=== PATIENT | male | born 1995 | race Caucasian/White ===

== ENCOUNTER 2020-01-13 18:17 | Observation (INO) ==
[2020-01-13] MEDS ORDERED: SODIUM CHLORIDE 0.9% 1000ML 1,000 ML IV ONE (18:54)
[2020-01-13] MEDS ORDERED: VANCOMYCIN CONSULT ACTIVE PRN (19:07)
[2020-01-13] MEDS ORDERED: ACETAMINOPHEN 500 MG TAB PO STA (19:07)
[2020-01-13] MEDS ORDERED: VANCOMYCIN HCL 1,500 MG in SODIUM CHLORIDE 0.9% 500 ML IV ONE (19:07)
--- NOTE | 2020-01-13 19:29 | Emergency Department Note ---
History of Present Illness General Chief complaint: Wound Stated complaint: SPIDER BITE Time Seen by Provider: 01/13/20 18:45 History of Present Illness Provider complaint: Cellulitis fever Onset (ago): day(s) 2 Location: ankle and left Radiation: non-radiation Severity: severe Maximum Pain Intensity: 9 Current Pain Intensity: 9 Quality: + burning, + aching and + constant Relieved By: + none Exacerbated By: + none Associated symptoms: + fever/chills (T-max 102.2) and + rash; no confusion, no chest pain, no headaches, no nausea/vomiting and no shortness of breath 24-year-old male presents emergency department for cellulitis over his left ankle and fever. Patient states he noticed his symptoms began on Friday. He does report a fever. He reports his fever T-max was 102.2. He denies any discharge from the area. Home Medications Home Medications Medication Instructions Recorded Confirmed Type doxycycline hyclate 100 mg PO BID 21 Days #42 tab 01/12/20 01/13/20 Rx mupirocin 1 applic TOPICAL BID #22 g 01/12/20 01/13/20 Rx betamethasone dipropionate 0.05 % 1 applic TOPICAL BID #45 g 01/13/20 01/13/20 Rx topical ointment Allergies Allergy/AdvReac Type Severity Reaction Status Date / Time No Known Allergies Allergy Verified 01/13/20 10:38 Past Med/Surg History Medical History (Updated 01/13/20 @ 19:26 by Raheel Harris) Cellulitis Embryonal rhabdomyosarcoma 2011 Insect bite Surgical History History of orchiectomy Hx of knee surgery Social History Smoking Status: Never smoker Second Hand Exposure: No; Hx Alcohol Use: Yes Hx Substance Use: No Preferred Language: Nepali marital status: Single current occupational status: employed 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 Feels Safe at Home: Yes Childhood Exposure to Second-Hand Smoke: No Dental Care, Regularly: Yes Physical Activity Frequency: Daily Seatbelt Use: always Sunscreen Use: Yes Review of Systems A total of 10 systems reviewed and were otherwise negative Physical Exam Vital Signs Vital Signs - 24 hr 01/13/20 18:21 01/13/20 20:07 Temperature 38.1 C H Temperature Source Oral Pulse Rate 96 H Pulse Rate [Radial] 85 Pulse Rhythm [Radial] Regular Pulse Strength [Radial] Normal Respiratory Rate 18 18 Blood Pressure 138/78 Blood Pressure [Right Arm] 141/80 H Blood Pressure Mean 98 Blood Pressure Mean [Right Arm] 100 Pulse Oximetry 97 100 Oxygen Delivery Method Room Air Room Air Sepsis Recent Fever Within 48 Hours Yes Sepsis New/Unexplained Change in Mental Status No Sepsis Action Taken by Nursing No Action Required Physical Exam GENERAL: He is oriented to person, place, and time. He appears well-developed and well-nourished. He does not appear distressed. HENT: Exam performed. - Head: Normocephalic and atraumatic. - Right Ear: External ear normal. No mastoid tenderness. - Left Ear: External ear normal. No mastoid tenderness. - Mouth/Throat: The oropharynx is clear and moist. No trismus in the jaw. No dental abscesses or uvula swelling. No oropharyngeal exudate or tonsillar abscesses. EYES: Conjunctivae and EOM are normal. Pupils are equal, round, and reactive to light. Right eye exhibits no discharge. Left eye exhibits no discharge. No scleral icterus. NECK: Normal range of motion. Neck supple. No JVD present. No spinous process tenderness present. No carotid bruit present. No rigidity. No tracheal deviation and normal range of motion present. No Brudzinski's sign and no Kernig's sign noted. CV: Normal rate, regular rhythm, normal heart sounds and intact distal pulses. There is no peripheral edema. Palpable radial pulses bue. PULM/CHEST: Effort normal and breath sounds normal. No respiratory distress. No stridor. He has no wheezes. He has no rales. - Chest Wall: He exhibits no tenderness. ABD: The abdomen is soft. Bowel sounds are normal. He has no distension. No mass is present. There is no tenderness. There is no rebound, no guarding, no Farrell's sign and no tenderness at McBurney's point. Rovsig negative. MUSC/SKEL: Normal range of motion. There is no peripheral edema, tenderness or deformity. LYMPH: No cervical adenopathy. NEURO: He is alert and oriented to person, place, and time. He has normal strength. No cranial nerve deficit or sensory deficit. Coordination and gait normal. GCS eye subscore is 4. GCS verbal subscore is 5. GCS motor subscore is 6. Cerebellar tests wnl. SKIN: Bullous lesion over the posterior ankle with surrounding erythema and warmth. There is no drainage. PSYCH: He has a normal mood and affect. Behavior is normal. Judgment and thought content normal. Course Course 1844: The patient was evaluated in room A10. A complete history and physical exam was performed. EMR reviewed. Patient was seen in the emergency department last night. Per the documentation it was thought that the patient might of bit by an insect. He had blood work done which was within normal limits including a negative anaplasmosis and Lyme screen. Patient was discharged with Bactroban and doxycycline. Patient did see dermatology this morning and they thought that the patient was suffering from erysipelas versus cellulitis. Wound culture was taking per dermatology note. Given the patient's worsening cellulitis and fever, will plan on admitting the patient to the hospitalist service. Labs have been sent. 2113: Vital signs stable. Labs are within normal limits with exception of a mildly elevated creatinine of 1.51. Discussed with [facility] hospitalist Dr. Hanson who agreed to evaluate the patient Administered Medications Vancomycin HCl 1,500 mg/ (Sodium Chloride) 530 mls @ 200 mls/hr IV NOW ONE Stop: 01/13/20 21:45 Last Admin: 01/13/20 20:04 Dose: 200 mls/hr Documented by: [id number] Discontinued Medications Acetaminophen (Acetaminophen 500 Mg Tab) 1,000 mg PO NOW STA Stop: 01/13/20 19:08 Last Admin: 01/13/20 20:02 Dose: 1,000 mg Documented by: [id number] Sodium Chloride (Nss 1000ml) 1,000 mls @ 999 mls/hr IV .Q1H1M ONE Stop: 01/13/20 19:54 Last Admin: 01/13/20 20:04 Dose: 999 mls/hr Documented by: [id number] Medical Decision Making Laboratory Data Result diagrams: 01/13/20 19:50 01/13/20 19:50 Lab Results 01/13/20 01/13/20 01/13/20 Range/Units 19:50 19:50 19:50 WBC 8.65 (4.8-10.8) K/uL RBC 4.84 (4.7-6.1) M/uL Hgb 14.8 (14.0-18.0) g/dL Hct 41.3 L (42-52) % MCV 85.3 (80-100) fL MCH 30.6 (25-34) pg MCHC 35.8 (32-36) g/dL RDW Std Deviation 38.1 (36.4-46.3) fL RDW Coeff of Olivia 12.2 (11.5-14.5) % Plt Count 136 (130-400) K/uL MPV 10.9 H (7.4-10.4) fL Immature Gran % (Auto) 0.1 % Neut % (Auto) 80.5 % Lymph % (Auto) 9.1 % Braxton % (Auto) 9.9 % Eos % (Auto) 0.3 % Baso % (Auto) 0.1 % Neut # (Auto) 6.95 H (1.4-6.5) K/uL Lymph # (Auto) 0.79 L (1.2-3.4) K/uL Braxton # (Auto) 0.86 H (0.11-0.59) K/uL Eos # (Auto) 0.03 (0-0.5) K/uL Baso # (Auto) 0.01 (0-0.2) K/uL Immature Gran # (Auto) 0.01 (0.00-0.02) K/uL Sodium 137 (136-145) mmol/L Potassium 3.7 (3.5-5.1) mmol/L Chloride 102 (98-107) mmol/L Carbon Dioxide 28 (21-32) mmol/L Anion Gap 7.0 (3-11) BUN 15 (7-18) mg/dl Creatinine 1.51 H (0.6-1.4) mg/dl Est Cr Clr Drug Dosing 76.5 ml/min Est GFR ( Amer) 72.8 Est GFR (Non-Af Amer) 62.8 BUN/Creatinine Ratio 9.9 L (10-20) Glucose 88 (70-99) mg/dl Lactate 1.4 (0.4-2.0) mmol/L Calcium 9.6 (8.5-10.1) mg/dl [facility] Narrative 1845: The patient was evaluated in room A10. A complete history and physical exam was performed. EMR reviewed. Patient was seen in the emergency department last night. Per the documentation it was thought that the patient might of bit by an insect. He had blood work done which was within normal limits including a negative anaplasmosis and Lyme screen. Patient was discharged with Bactroban and doxycycline. Patient did see dermatology this morning and they thought that the patient was suffering from erysipelas versus cellulitis. Wound culture was taking per dermatology note. Given the patient's worsening cellulitis and fever, will plan on admitting the patient to the hospitalist service. Labs have been sent. 2113: Vital signs stable. Labs are within normal limits with exception of a mildly elevated creatinine of 1.51. Discussed with [facility] hospitalist Dr. Hanson who agreed to evaluate the patient Impression & Plan Cellulitis Discharge Plan Visit Data Chief Complaint: Wound Stated Complaint: SPIDER BITE ED Provider: Raheel Harris Discharge Problem: Cellulitis Patient Disposition: Being Evaluated by Hospitalist Forms Stand Alone Forms: [facility] Prescriptions Prescriptions: No Action betamethasone dipropionate 0.05 % ointment 1 applic topical BID Qty: 45 RF: 1 mupirocin 2 % ointment 1 applic topical BID Qty: 22 RF: 0 doxycycline hyclate 100 mg tablet 100 mg PO BID 21 Days Qty: 42 RF: 0 Referrals Referrals: PCP,NO [Primary Care Provider] -
[2020-01-13 20:11] LABS: Basophils # (auto) 0.01 K/uL (0-0.2); Basophils % (auto) 0.1 %; Eosinophils # (auto) 0.03 K/uL (0-0.5); Eosinophils % (auto) 0.3 %; Hematocrit (blood only) 41.3 % (42-52); Hemoglobin 14.8 g/dL (14.0-18.0); Immature Granulocytes # (auto) 0.01 K/uL (0.00-0.02); Immature Granulocytes % (auto) 0.1 %; Lymphocytes # (auto) 0.79 K/uL (1.2-3.4); Lymphocytes % (auto) 9.1 %; Mean Corpuscular Hemoglobin 30.6 pg (25-34); Mean Corpuscular Hgb Conc 35.8 g/dL (32-36); Mean Corpuscular Volume 85.3 fL (80-100); Mean Platelet Volume 10.9 fL (7.4-10.4); Monocytes # (auto) 0.86 K/uL (0.11-0.59); Monocytes % (auto) 9.9 %; Neutrophils # (auto) 6.95 K/uL (1.4-6.5); Neutrophils % (auto) 80.5 %; Platelet Count 136 K/uL (130-400); RDW Coefficient of Variation 12.2 % (11.5-14.5); RDW Standard Deviation 38.1 fL (36.4-46.3); Red Blood Count 4.84 M/uL (4.7-6.1); White Blood Count 8.65 K/uL (4.8-10.8)
[2020-01-13 20:25] LABS: BUN Creatinine Ratio 9.9 (10-20); Calcium 9.6 mg/dl (8.5-10.1); Creatinine Clr Calc Pharmacy 76.5 ml/min; Est GFR (African American) 72.8; Est GFR (Non-African American) 62.8; Potassium 3.7 mmol/L (3.5-5.1)
--- NOTE | 2020-01-13 21:08 | History & Physical Report ---
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 Left lower extremity cellulitis versus erysipelas 2/2 insect bite -Patient febrile with bright red sharply demarcated spreading erythema of the left lower extremity as noted above Failed Bactrim/adjunct doxycycline treatment Physical exam shows no signs of tendon/muscle involvement US soft tissue LLE pending for abscess/depth evaluation D/c vanco given elevated Cr. Convert to dapto on admit Wound culture collected outpatient pending Case discussed with [facility] by emergency attending provider, [facility] agreed to see patient in the morning after admit. Consult placed. 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 Pt reports on Friday, 5 days ago, he was on a trail run and ran through a series of webs in [place]. He noticed when he got home that he had a small insect bite on the back of his lower left calf. He feels this was okay on Friday and Friday, but on Friday he had a sudden increase in pain, redness, and swelling. He was seen Friday evening at [facility] who prescribed him Bactrim and noted that he had a 102 fever. [place] like he had minimal improvement and was seen on Friday by his stunt performer for a scheduled appointment for dry skin who lanced a blister which reportedly drained clear fluid and instructed him to return to the emergency department if he was not improving within 24 hours. He reports that the redness swelling and pain continued to worsen and spreadWwhich caused him to present to the emergency department last night. Doxycycline was added for double coverage and he had a Lyme screen which was negative. He was discharged home to continue Bactrim/Doxy. His pain, redness, and swelling continued to worsen which caused him to return today for reevaluation. His case was discussed by the emergency provider with you [facility] who agreed to see him the following morning if he was admitted. Patient reports that he had been taking Motrin and Tylenol for pain with mild/minimal benefit. No other attempted treatment. Worsening factors include bearing weight, after bearing weight for a couple of minutes pain slightly improves. Denies pain with plantar flexion/dorsiflexion/ankle inversion and eversion/lower extremity internal rotation/external rotation. Medical history: History of embryonic myosarcoma cured in 2012 following surgery, chemo, and radiation. Denies other chronic medical history. Surgical history: As above. And left meniscal arthroscopic of the knee. Medications: Denies chronic medications. Family history: Noncontributory Allergies: Denies drug allergies Social: Denies tobacco use, is an avid runner. CODE STATUS: Full code Allergies Allergy/AdvReac Type Severity Reaction Status Date / Time No Known Allergies Allergy Verified 01/13/20 21:25 Home Medications Home Medications Medication Instructions Recorded Confirmed Type doxycycline hyclate 100 mg PO BID 21 Days #42 tab 01/12/20 01/13/20 Rx mupirocin 1 applic TOPICAL BID #22 g 01/12/20 01/13/20 Rx betamethasone dipropionate 0.05 % 1 applic TOPICAL BID #45 g 01/13/20 01/13/20 Rx topical ointment sulfamethoxazole-trimethoprim 1 tab PO BID 01/13/20 01/13/20 History Past Med/Surg History Medical History Cellulitis Embryonal rhabdomyosarcoma 2011 Insect bite Surgical History History of orchiectomy Hx of knee surgery Social History Smoking Status: Never smoker Second Hand Exposure: No; Do You Dip or Chew Tobacco: No; Hx Alcohol Use: No Hx Substance Use: No Preferred Language: Omani Communication Ability: Effective Hand Molder Required: No Beliefs That Will Affect Care: None marital status: Single Current Living Situation: Significant Other current occupational status: employed 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 Other Information That Helps Us Care for You: No Feels Safe at Home: Yes Safety Concerns: Feels Safe At This Time Childhood Exposure to Second-Hand Smoke: No Dental Care, Regularly: Yes Physical Activity Frequency: Daily Seatbelt Use: always Sunscreen Use: Yes Review of Systems Review of Systems: Constitutional: See HPI Eyes: Denies double vision, vision change, eye pain ENT: Denies ear pain, sore throat, sinus pain Cardiovascular: Denies Chest pain, chest pressure, palpitations, extremity swelling Respiratory: Denies shortness of breath, cough, sputum production, difficulty breathing Gastrointestinal: Denies abdominal pain, nausea, vomiting, constipation, diarrhea Genitourinary: Denies pain with urination, urinary urgency, urinary frequency Musculoskeletal: See HPI Integumentary: See HPI Neurological: Denies headache, numbness, tingling, focal weakness Physical Exam Physical Exam: General: A&Ox3. NAD. Cooperative. HEENT: Atraumatic, normocephalic. Pupils equal and responsive to light and accommodation. Visual acuity grossly intact. Pulm: CTAB A&P. -wheezes, -rales, -rhonchi. Symmetrical chest rise. No increase work of breathing. No respiratory distress. Cardiac: RRR, -mrg. Radial pulses intact and symmetrical. Abdominal: Nontender, nondistended, soft. BS present. Skin: Warm, moist Extremities: Left lower extremity with erythema with sharply demarcated borders and swelling spreading from the posterior distal calf and wrapping around the ankle medially and laterally and sparing the dorsal surface of the left foot. Very warm to the touch. Central area of darkening/slight ulceration. Tender to palpation at ulceration, minimal tenderness at the lateral ankle. Soft tissue swelling is appreciated. PT pulses intact bilaterally and symmetrical. Left ankle dorsiflexion/plantar flexion/inversion/eversion/lower extremity internal rotation/external rotation against resistance does not cause any pain or worsening of pain. 5/5 strength to all motions and symmetrical with right. Sensation to soft touch intact in all toes bilaterally and symmetrical. Results & Data Results & Data ([facility]) Vital Signs (Past 12 Hours) Vital Signs Temp Pulse Pulse Resp BP BP Pulse Ox 01/13/20 20:07 85 18 141/80 H 100 01/13/20 18:21 38.1 C H 96 H 18 138/78 97 Supervising Physician Co-Signing Physician Notes Attending addendum: I have physically seen this patient, have supervised the medical residents activities, and agree with the H&P unless as otherwise noted. Assessment and Plan: Cellulitis/spider bite left lower extremity- Most likely spider bite, with associated necrotic center area due to toxin. Patient has had a negative Lyme test, and peripheral smear to this point not suggestive of anaplasmosis. Follow anaplasmosis antibody testing. We will also check for ehrlichiosis and babesiosis. N.p.o. after midnight Place on daptomycin IV and doxycycline IV. Keep leg elevated NSS@100 mils per hour Patient's significant other showed a picture which reveals a linear area of erythema extending up the calf to the popliteal fossa, suggestive of previous lymphangitis. This would suggest that the patient's initial treatment has been somewhat successful. Consult pending for Dr. Bains, [facility]. Acute kidney injury- Creatinine has worsened from 1.4-1.5. Continue IV fluid rehydration. Stop Bactrim. Repeat laboratories in a.m. Remaining orders and notations as noted Resident Activity Tracking Resident Involvement: Resident Care Provided Care Provided: [facility] (1) Cellulitis Laterality: left Site of cellulitis: extremity Site of cellulitis of extremity: lower extremity Qualified Code(s): L03.116 - Cellulitis of left lower limb (2) Insect bite Encounter type: initial encounter Laterality: left Site of insect bite: lower leg Qualified Code(s): S80.862A - Insect bite (nonvenomous), left lower leg, initial encounter; W57.XXXA - Bitten or stung by nonvenomous insect and other nonvenomous arthropods, initial encounter
[2020-01-13] MEDS ORDERED: ACETAMINOPHEN 325 MG TAB PO PRN (22:25)
[2020-01-13] MEDS ORDERED: DAPTOMYCIN CONSULT ACTIVE PRN (22:25)
[2020-01-13] MEDS ORDERED: SODIUM CHLORIDE 0.9% 1000ML 1,000 ML IV SCH (22:25)
[2020-01-13] MEDS ORDERED: OXYCODONE HCL IR 5 MG TAB (IMMEDIATE RELEASE) PO PRN (23:13)
[2020-01-13] MEDS ORDERED: HYDROmorphone INJ 0.5 MG/0.5 ML SYR IV PRN (23:21)
[2020-01-14] MEDS: DOXYCYCLINE HYCLATE 100 MG in DEXTROSE 5% 100 ML IV SCH ×2 (03:19→16:19)
[2020-01-14] MEDS: DAPTOmycin 300 MG in SYRINGE 0 ML IV SCH (05:31)
[2020-01-14 06:34] LABS: Basophils # (auto) 0.01 K/uL (0-0.2); Basophils % (auto) 0.2 %; Eosinophils % (auto) 1.7 %; Hematocrit (blood only) 38.3 % (42-52); Hemoglobin 13.4 g/dL (14.0-18.0); Immature Granulocytes # (auto) 0.01 K/uL (0.00-0.02); Immature Granulocytes % (auto) 0.2 %; Lymphocytes # (auto) 0.78 K/uL (1.2-3.4); Lymphocytes % (auto) 13.5 %; Mean Corpuscular Volume 85.7 fL (80-100); Mean Platelet Volume 11.3 fL (7.4-10.4); Monocytes # (auto) 1.08 K/uL (0.11-0.59); Monocytes % (auto) 18.7 %; Neutrophils # (auto) 3.81 K/uL (1.4-6.5); Neutrophils % (auto) 65.7 %; Platelet Count 124 K/uL (130-400); RDW Coefficient of Variation 12.4 % (11.5-14.5); RDW Standard Deviation 39.2 fL (36.4-46.3); Red Blood Count 4.47 M/uL (4.7-6.1); White Blood Count 5.79 K/uL (4.8-10.8)
[2020-01-14 07:11] LABS: BUN Creatinine Ratio 9.4 (10-20); Calcium 8.1 mg/dl (8.5-10.1); Creatinine Clr Calc Pharmacy 93.2 ml/min; Est GFR (African American) 92.4; Est GFR (Non-African American) 79.7
--- NOTE | 2020-01-14 07:53 | Ultrasound Report ---
ULTRASOUND LEFT LOWER EXTREMITY NONVASCULAR CLINICAL HISTORY: Left lower extremity cellulitis. COMPARISON STUDY: Radiographs of the left ankle dated 01/12/2020. FINDINGS: Real-time, grayscale, and color flow sonography of the soft tissues of the left posterior a nkle and the dorsal aspect of the foot is performed at the indicated sites of interest. There is subc utaneous soft tissue edema and fluid identified at this site. No organized fluid collection is seen t o suggest abscess. IMPRESSION: Findings suggest cellulitis in the left foot and ankle. No organized fluid collection is seen to indicate abscess. Electronically signed by: Luis A Wood M.D. 01/14/2020 7:51 AM
--- NOTE | 2020-01-14 10:13 | Orthopedic Consultation ---
Date of Consultation January 14, 2020 Assessment & Plan (1) Cellulitis: Cellulitis left lower extremity. Patient is starting to respond to antibiotics. He has noticed a decrease in his swelling. The erythema itself is a bit slower to resolve. Blistered area in the posterior lateral aspect will likely be the focal point to reaccumulate fluid. I have discussed the case with Dr. Bains. 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 Continue n.p.o. status. Continue IV antibiotics. Blood cultures and a surface wound culture are pendi ng. Plan for further cultures in the operating room. History of Present Illness Reason for Consultation: Cellulitis left lower extremity Attending Physician: Evan Walker, History of Present Illness Patient is a 24-year-old white male who was admitted for cellulitis and questionable abscess of the left lower extremity. Patient was on a trail run approximately 5 days ago. Had apparently run through some brush that had multiple cobwebs noted and when he had gotten home he had noticed what appeared to be a insect bite on his left lower extremity. He had no discernible symptoms for the first couple of days however by Friday he began noticing increased redness and pain in the left lower extremity above the ankle along the Achilles tendon where the bite had originated. He went to a [facility] where he was s een and given a prescription for Bactrim. The following day he had a dermatology appointment which the poultry processor noted a blister in that area and lanced it with clear fluid being expressed. Continue the Bactrim but his symptoms continue to worsen. He returned to the emergency room where he was prescribed doxycycline along with the Bactrim and was told to return if it worsened. He continued to have worsening symptoms. He states that increased redness at the foot going up the leg as well as increased swelling and pain. He states he was able to move his ankle with minimal discomfort and was able to weight-bear. He states if he had been sitting down for period of time and then started to weight-bear on the foot, he had initial pain but it got better as he continue to use the extremity. He was noted to be running fevers off and on. He returned to the emergency room last night and was admitted by the hospitalist service. Started on daptomycin. This morning he states he is feeling better. He has less discomfort although he still has pain. He notes that he has much less swelling this morning. He thought he was having a fever this morning however vital signs showed he has been afebrile since late last night. Denies any increased cough or sputum production, shortness of breath, chest pain, irregular heartbeat. Denies nausea or vomiting. Allergies Allergy/AdvReac Type Severity Reaction Status Date / Time No Known Allergies Allergy Verified 01/13/20 21:25 Home Medications Home Medications Medication Instructions Recorded Confirmed Type doxycycline hyclate 100 mg PO BID 21 Days #42 tab 01/12/20 01/13/20 Rx mupirocin 1 applic TOPICAL BID #22 g 01/12/20 01/13/20 Rx betamethasone dipropionate 0.05 % 1 applic TOPICAL BID #45 g 01/13/20 01/13/20 Rx topical ointment sulfamethoxazole-trimethoprim 1 tab PO BID 01/13/20 01/13/20 History Patient History Medical History Cellulitis Embryonal rhabdomyosarcoma 2012 Insect bite Surgical History History of orchiectomy Hx of knee surgery Social History Smoking Status: Never smoker Second Hand Exposure: No; Do You Dip or Chew Tobacco: No; Hx Alcohol Use: No Hx Substance Use: No Preferred Language: Estonian Communication Ability: Effective Med Specialist Required: No Beliefs That Will Affect Care: None marital status: Single Current Living Situation: Significant Other current occupational status: employed 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 He is alert and oriented x3, no acute distress, pleasant and cooperative. Examination of the left lower extremity shows an a large area of erythema at the foot that is going up the extremity. There is an area that has been marked with a purple pen that showed where most of his erythema was. There is some of the erythema that it has been receding. He does have a slight amount of erythema just above the pen janel going up the back of the calf. He still has some swelling over the dorsum of the foot with erythema noted. An area over the posterior lateral calf and Achilles tendon has blistered up. It is churchill and black in color. I cannot express any fluid at this time from this area but it appears to have a scant amount of fluid under it. Tender on palpation. Again no drainage noted this morning. No foul odor. He is able to dorsiflex and plantarflex the ankle without difficulty. He states he feels discomfort in around the bite wound but not in the joint of the ankle with range of motion. Neurovascular is intact. Denies decreased sensation. Capillary refill is less than 2 seconds. Results & Data ([facility]) Vital Signs (Past 12 Hours) Vital Signs Temp Pulse Resp BP Pulse Ox 01/14/20 07:17 37.4 C 82 16 129/69 97 01/13/20 23:16 36.8 C 01/13/20 22:35 37.5 C 88 18 146/75 H 100 (1) Cellulitis Laterality: left Site of cellulitis: extremity Site of cellulitis of extremity: lower extremity Qualified Code(s): L03.116 - Cellulitis of left lower limb
--- NOTE | 2020-01-14 11:22 | Anesthesiology Consultation ---
Date of Service January 14, 2020 Assessment & Plan (1) Encounter for pre-operative examination: Chart Review Chart Review: Acceptable Risk for Surgery (Urgent) History Surgery Operation Date: 01/14/20 14:25 Proposed Procedures p Left Lower Extremity Abscess, Incision and Drainage - Amarjit Bains DO Height/Weight Height: 5 ft 10 in Weight: 77.7 kg Allergies Allergy/AdvReac Type Severity Reaction Status Date / Time No Known Allergies Allergy Verified 01/13/20 21:25 Medications Home Medications Medication Instructions Recorded Confirmed Last Taken doxycycline hyclate 100 mg PO BID 21 Days #42 tab 01/12/20 01/13/20 01/13/20 18:00 mupirocin 1 applic TOPICAL BID #22 g 01/12/20 01/13/20 Unknown betamethasone dipropionate 0.05 % 1 applic TOPICAL BID #45 g 01/13/20 01/13/20 Unknown topical ointment sulfamethoxazole-trimethoprim 1 tab PO BID 01/13/20 01/13/20 01/13/20 18:00 Active Medications Generic Name Dose Route Start Last Admin Trade Name Pablo PRN Reason Stop Dose Admin Daptomycin 300 mg/ Syringe 6 mls @ 3 mls/min 01/14/20 06:00 01/14/20 05:31 IV 01/21/20 05:59 3 mls/min Q24H WILLIE Administration Protocol Doxycycline Hyclate 100 mg/ 110 mls @ 50 mls/hr 01/14/20 03:00 01/14/20 05:31 Dextrose IV 01/16/20 02:59 Infused Q12H WILLIE Infusion Past Medical History Medical History Cellulitis Embryonal rhabdomyosarcoma 2012 Insect bite Past Surgical History Surgical History History of orchiectomy Hx of knee surgery Social History Smoking Status: Never smoker Do You Dip or Chew Tobacco: No Hx Alcohol Use: No Hx Substance Use: No Physical Exam Vital Signs Last Vital Signs Temp 37.4 C 01/14/20 07:17 Pulse 82 01/14/20 07:17 Resp 16 01/14/20 07:17 BP 129/69 01/14/20 07:17 Pulse Ox 97 01/14/20 07:17 Testing Laboratory Results 01/14/20 06:11 08/14/20 06:11
[2020-01-14] MEDS ORDERED: LIDOCAINE HCL 2% 2 ML VIAL/AMP(20MG/ML) INFIL ONE (12:07)
[2020-01-14] MEDS ORDERED: fentaNYL citrate 100 MCG/2 ML VIAL ONE ×2 (12:07→14:05)
[2020-01-14] MEDS ORDERED: PROPOFOL IV EMULSION 10 MG/ML 20 ML VIAL IV ONE (12:07)
[2020-01-14] MEDS ORDERED: DEXAMETHASONE SOD INJ 4 MG/ML VIAL ONE (12:07)
[2020-01-14] MEDS ORDERED: MIDAZOLAM HCL 1 MG/ML 2ML VIAL ONE (12:07)
[2020-01-14] MEDS ORDERED: ONDANSETRON INJ 2 MG/ML 2 ML VIAL ONE (12:07)
[2020-01-14] MEDS ORDERED: BUPIVACAINE 0.5 % 5 MG/1 ML MPF 30ML VIAL ONE (13:30)
[2020-01-14] MEDS ORDERED: BACITRACIN INJ 50,000 UNIT VIAL ONE (13:30)
--- NOTE | 2020-01-14 13:43 | History & Physical Bridge Note ---
Date of Service January 14, 2020 History & Physical Bridge Note I have examined the patient, reviewed the History & Physical and in the interval since the performance of the History & Physical I have noted the following changes of clinical significance: Will require left ankle incision and drainage deep abscess, irrigation and debridement skin/fascia and Achilles tendon.
[2020-01-14] MEDS ORDERED: fentaNYL citrate 100 MCG/2 ML VIAL IV PRN (13:44)
[2020-01-14] MEDS ORDERED: ATROPINE SULFATE 0.1 MG/ML 10ML SYR IV PRN (13:44)
[2020-01-14] MEDS ORDERED: KETOROLAC 30 MG/ML VIAL IV PRN (13:44)
[2020-01-14] MEDS ORDERED: ONDANSETRON INJ 2 MG/ML 2 ML VIAL IV PRN (13:44)
[2020-01-14] MEDS ORDERED: KETOROLAC 30 MG/ML VIAL ONE (14:17)
[2020-01-14] MEDS ORDERED: BUPIVACAINE 0.5 % 5 MG/1 ML MPF 30ML VIAL INFIL ONE (14:31)
--- NOTE | 2020-01-14 14:42 | Post Operative Brief Note ---
Immediate Post Op Note v1 Date of Surgery January 14, 2020 Pre & Post Diagnosis Operation Date: 01/14/20 14:25 Pre-Op Diagnosis: Left posterior ankle abscess, left lower extremity cellulitis, multiple skin bullae posterior ankle Post-Op Diagnosis: Left posterior ankle abscess, left lower extremity cellulitis, multiple skin bullae posterior ankle I identified the patient and participated in the time-out.: Yes Procedure Operation Date: 01/14/20 14:25 Actual Procedures p Left posterior ankle extremity Abscess Incision and Drainage, irrigation and debridement posterior ankle including skin/fascia/peritenon and Achilles tendon. (Left) - Amarjit Bians DO Surgeon Amarjit Bains DO Line Service Supervisor Henry Bryan PA-C Estimated Blood Loss 2 Findings Consistent with Post-Op Diagnosis Specimens Aerobic anaerobic Gram stain deep abscess posterior left ankle region Drains Other (1/2 inch iodoform gauze drain) Anesthesia Type General Regional Complications none Disposition Accompanied Patient To Recovery: No Disposition: Recovery Room Overlapping Procedure I was present for: the critical portions of procedure. I was immediately available: during the entire case.
--- NOTE | 2020-01-14 15:00 | Operative Report (OR) ---
DATE OF OPERATION: 01/14/2020 PREOPERATIVE DIAGNOSES: 1. Left posterior ankle abscess. 2. Cellulitis, left lower leg. 3. Multiple bullae, left posterior ankle. POSTOPERATIVE DIAGNOSES: 1. Left posterior ankle abscess. 2. Cellulitis, left lower leg. 3. Multiple bullae, left posterior ankle. PROCEDURES PERFORMED: 1. Left posterior ankle region incision and drainage of abscess, deep. 2. Irrigation and debridement of skin/fascia, peritenon and Achilles. SURGEON: Amarjit Bains DO. CARGO SURVEYOR: Henry Bryan PA-C. ANESTHESIA: General, local. SPECIMENS: Aerobic, anaerobic, Gram stain of deep abscess, left posterior ankle. DRAINS: 1/2 inch iodoform gauze. COMPLICATIONS: None. BLOOD LOSS: 2 mL. PERTINENT HISTORY: This is a 24-year-old gentleman who noticed a painful swelling and bullae with redness streaking up his leg since sometime after Friday of this week. He was on a run, he noted that he did run through a significant amount of spider webs on the trailer he was running on. He started to have pain in his lower ankle and Achilles region, noted bumps and bullae, which then progressively worsened. Yesterday, he had severe erythema and cellulitis with large and inflamed bullae in the posterior aspect of his left ankle region. He was seen in the Emergency Department and admitted to the hospitalist service, placed on IV antibiotics with Orthopedics to consult. The patient was seen in consultation, noted to have significant erythema and bullae with an area of severe induration, fluctuance, likely abscess. The patient was then scheduled for surgery as indicated. All potential risks, benefits, complications, alternatives, rehab potential for incomplete relief of symptoms, need for further surgery, DVT, PE, , persistent pain, swelling, scarring, weakness, loss of function and need for further debridement were discussed with the patient. I explained that there may be tissue necrosis also involved, that this indeed was a toxic spider envenomation. The patient was then scheduled for surgery as indicated. DESCRIPTION OF PROCEDURE: The patient was taken to the operative suite, placed supine on the operating table. After review of consent and identification of proper operative site, the patient was anesthetized, LMA was placed. Tourniquet was placed high on the left thigh over cast padding. Left lower extremity was sterilely prepped and draped in usual fashion, elevated and tourniquet inflated to 350 mmHg. There was no exsanguination performed due to the cellulitis and infection. Next, after surgical timeout was performed, a 15 blade scalpel was used to make an incision at the site of maximum induration and fluctuance posterolateral to the Achilles tendon. The incision was deepened through subcutaneous tissue. Meticulous hemostasis was achieved with electrocautery. Full thickness skin flaps were developed. The incision was deepened through the skin and subcutaneous tissue to the level of the Achilles and peritenon. There is a deep abscess adjacent to the peritenon, which was then sampled for aerobic, anaerobic, Gram stain, and sent off as specimen. There was no specific focal tissue necrosis; however, there was some tunneling noted. This was followed with a small curette and curettage was then performed of the fascia and the peritenon adjacent to the Achilles. Next, the rongeur was then used to debride any necrotic or questionable tissue around the incision site. One of the small bullae superficially was also cultured. Next, pulsatile lavage with 3 liters of sterile saline with bacitracin was then used to lavage the abscess pocket until clear. Next, new top gloves and top sheet were changed and 1/2-inch iodoform gauze packing was placed into the abscess site and then loose soft tissue closure approximation was then performed with 3-0 nylon sutures. Next, a sterile compressive dressing was applied overwrapped with an Daniel wrap. The tourniquet was released. The patient was awakened and taken to recovery in stable condition. I attest to the content of the Intraoperative Record and any orders documented therein. Any exception s are noted below.
--- NOTE | 2020-01-14 15:59 | Anesthesiology Progress Note ---
Date of Service January 14, 2020 Anesthesia Post Procedure Vital Signs Vital Signs: Temp Pulse Pulse Pulse Resp BP BP 01/14/20 15:30 36.9 C 70 16 127/79 01/14/20 15:20 68 14 141/84 H 01/14/20 15:10 76 16 128/58 L 01/14/20 15:00 71 12 147/81 H 01/14/20 14:50 59 L 12 132/59 L 01/14/20 14:44 36.9 C 57 L 14 132/74 01/14/20 13:41 36.6 C 80 16 147/83 H 01/14/20 07:17 37.4 C 82 16 129/69 01/13/20 23:16 36.8 C 01/13/20 22:35 37.5 C 88 18 146/75 H 01/13/20 22:01 79 16 137/72 01/13/20 21:46 37.8 C H 79 16 137/72 01/13/20 20:07 85 18 141/80 H 01/13/20 18:21 38.1 C H 96 H 18 138/78 Pulse Ox 01/14/20 15:30 100 01/14/20 15:20 100 01/14/20 15:10 100 01/14/20 15:00 100 01/14/20 14:50 100 01/14/20 14:44 100 01/14/20 13:41 98 01/14/20 07:17 97 01/13/20 23:16 01/13/20 22:35 100 01/13/20 22:01 99 01/13/20 21:46 99 01/13/20 20:07 100 01/13/20 18:21 97 Pain Intensity Left Foot: Pain Intensity: 1 Transfer of Care Handoff Completed per policy Notes Mental Status: alert / awake / arousable and participated in evaluation Patient Amnestic to Procedure: Yes Nausea / Vomiting: adequately controlled Pain: adequately controlled Airway Patency, RR, SpO2: stable & adequate BP & HR: stable & adequate Hydration State: stable & adequate Anesthetic Complications: no major complications apparent and Pt Satisfied with anesthetic care
--- NOTE | 2020-01-14 17:54 | Hospitalist Progress Note ---
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 Left lower extremity cellulitis versus erysipelas 2/2 insect bite -Patient febrile with bright red sharply demarcated spreading erythema of the left lower extremity as noted above Failed Bactrim/adjunct doxycycline treatment Physical exam shows no signs of tendon/muscle involvement US soft tissue LLE negative for abscess/depth evaluation continue Daptomycin 300 mg IV Q24H for inpatient treatment of cellulitis - Continue Doxycycline hyclate 100mg IV Q12H to cover for lyme Wound culture collected outpatient pending Ortho saw patient today - will perform I&D in the OR later today due to proximity of cellulitis to Achilles tendon - NPO for surgery OH Patient with creatinine 1.5 in the ED --> 1.24 this morning s/p 1L fluids - likely pre-renal secondary to dehydration No known history of kidney disease, patient recently on Bactrim by [facility] for approximately 5 days Hold Bactrim Vancomycin converted to daptomycin BMP daily No other chronical medical conditions DVT prophylaxis: Low risk, SCD on nonaffected extremity Diet: Regular Disposition: Medical surgical CODE STATUS: Full code (2) Insect bite: Admission and Anticipated Discharge Date Admission Date: January 13, 2020 Supervising Physician Co-Signing Physician Notes I also saw the patient current with the resident physician. I confirmed horton portions of the history and physical examination. I agree with the impression and plan as noted above. The patient notes about a 30% improvement in the symptoms compared to yesterday -he notes that the erythema and swelling are slightly down, and the pain at rest is less than compared to yesterday. However he still has pain with flexion of the left foot and considerable pain if he tries to bear weight. The history is detailed previously, although it is noted that a superficial wound culture was collected at a dermatology appointment and is pending. The patient was initially started on Bactrim, and subsequently doxycycline, but as noted above, had progression of erythema, edema, and pain despite. Orthopedics has seen the patient as well, and given the proximity of the wound to the Achilles tendon, the plan is to take the patient to the OR for incision , culture debridement, and irrigation irrigation. Subjective No acute events overnight. Afebrile since T38.1 x1 in the ED. VSS/WNL. Voiding spontaneously. US deep tissue of left lower extremity did not show signs of abscess. Patient NPO for possible procedure later today. This morning the patient confirmed history recorded in H&P - says he thinks he got bitten by a spider on his left calf while [place] 5 [place] ago. Denies current fever/chills, chest pain, shortness of breath, N/V, diarrhea, rash other than the red, painful redness on the back of his left lower calf. Review of Systems Constitutional: as per Subjective / HPI Eyes: no worsening vision Ear, Nose, Mouth, Throat: no hearing loss Respiratory: as per Subjective / HPI; no cough Cardiovascular: as per Subjective / HPI; no palpitations Gastrointestinal: as per Subjective / HPI Genitourinary: no dysuria, no urinary frequency, no urinary hesitancy and no flank pain Physical Exam Constitutional: WD/WN, vitals as above no acute distress ENMT: external ear and nose normal, oropharynx normal Neck: normal visual inspection Respiratory: normal respiratory effort, lungs clear to auscultation Cardiovascular: RRR, no murmur, no edema Gastrointestinal (Abdomen): normal bowel sounds, soft, nontender, no hepatosplenomegaly Musculoskeletal: no cyanosis or clubbing, extremities motor strength 5/5 Skin: warm, erythematous, well-demarcated lesion with central darkening on left posterior distal calf, moderately tender to palpation, with associated swelling of left ventral foot. Mildly indurated, no fluctuance. No tracks up leg. Neurologic: patellar DTR's 2+ bilat, sensation intact Psychiatric: A+Ox3, euthymic affect Results & Data Results & Data ([facility]) Vital Signs (Past 12 Hours) Vital Signs Temp Pulse Pulse Resp BP Pulse Ox 01/14/20 16:45 36.6 C 58 L 16 127/77 100 01/14/20 16:15 36.6 C 70 16 121/76 99 01/14/20 15:45 36.6 C 63 14 131/77 98 01/14/20 15:30 36.9 C 70 16 127/79 100 01/14/20 15:20 68 14 141/84 H 100 01/14/20 15:10 76 16 128/58 L 100 01/14/20 15:00 71 12 147/81 H 100 01/14/20 14:50 59 L 12 132/59 L 100 01/14/20 14:44 36.9 C 57 L 14 132/74 100 01/14/20 13:41 36.6 C 80 16 147/83 H 98 01/14/20 07:17 37.4 C 82 16 129/69 97 CBC Results Results Complete Blood Count Results: RBC 4.47 M/uL (4.7-6.1) L 01/14/20 WBC 5.79 K/uL (4.8-10.8) 01/14/20 Hgb 13.4 g/dL (14.0-18.0) L 01/14/20 Hct 38.3 % (42-52) L 01/14/20 Plt Count 124 K/uL (130-400) L 01/14/20 Chemistry (BMP) Results BMP Results: Sodium 141 mmol/L (136-145) 01/14/20 Potassium 4.0 mmol/L (3.5-5.1) 01/14/20 Chloride 111 mmol/L (98-107) H 01/14/20 BUN 12 mg/dl (7-18) 01/14/20 Creatinine 1.24 mg/dl (0.6-1.4) 01/14/20 Glucose 98 mg/dl (70-99) 01/14/20 Resident Activity Tracking Resident Involvement: Resident Care Provided Care Provided: Adult [facility] Medicine (1) Cellulitis Laterality: left Site of cellulitis: extremity Site of cellulitis of extremity: lower extremity Qualified Code(s): L03.116 - Cellulitis of left lower limb (2) Insect bite Encounter type: initial encounter Laterality: left Site of insect bite: lower leg Qualified Code(s): S80.862A - Insect bite (nonvenomous), left lower leg, initial encounter; W57.XXXA - Bitten or stung by nonvenomous insect and other nonvenomous arthropods, initial encounter
[2020-01-15] MEDS: DOXYCYCLINE HYCLATE 100 MG in DEXTROSE 5% 100 ML IV SCH ×2 (03:00→13:55)
--- NOTE | 2020-01-15 03:26 | Billing Data ---
Date of Service January 15, 2020 Coding Level of Care Code 47982 Initial Inpt Care Lvl 2
[2020-01-15] MEDS: DAPTOmycin 300 MG in SYRINGE 0 ML IV SCH (05:35)
--- NOTE | 2020-01-15 08:00 | Hospitalist Progress Note ---
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 Left lower extremity cellulitis versus erysipelas 2/2 insect bite - Patient febrile with bright red sharply demarcated spreading erythema of the left lower extremity as noted above Failed Bactrim/adjunct doxycycline treatment Physical exam shows no signs of tendon/muscle involvement US soft tissue LLE negative for abscess/depth evaluation continue Daptomycin 300 mg IV Q24H for inpatient treatment of cellulitis - (01/14) Wound culture collected by outpatient dermatology preliminarily shows Staph species, no sensitivities yet; surgical gram stain negative. Awaiting surgical culture from I&D on 01/13 - At recs of orthopedics, will continue dapto until final cultures return. At that time, can consider changing antibiotic regimen. - Continue Doxycycline hyclate 100mg IV Q12H to cover for lyme (01/13) s/p I&D in the OR by ortho to proximity of cellulitis to Achilles tendon OH -- Resolved Patient with creatinine 1.5 in the ED --> 1.24 on 01/13 s/p 1L fluids --> 1.15 on 01/14 in the AM (BUN at 13 01/14 AM) - likely pre-renal secondary to dehydration No known history of kidney disease, patient recently on Bactrim by [facility] for approximately 5 days Hold Bactrim, Vancomycin converted to daptomycin BMP daily No other chronic medical conditions DVT prophylaxis: Low risk, SCD on nonaffected extremity Diet: Regular Disposition: Medical surgical CODE STATUS: Full code (2) Insect bite: Admission and Anticipated Discharge Date Admission Date: January 13, 2020 Supervising Physician Co-Signing Physician Notes I saw the patient current with the resident physician and confirmed horton portions of the history and physical examination. Agree with the impression and plan as noted in the resident documentation. The patient states that the pain is better today although he is still nonweightbearing. When he does lower the leg off the side of the bed he does feel increased pressure and a throbbing sensation. When it is elevated there is really minimal discomfort. Surgery has seen the patient and rewrapped the wound; I do not personally examined the wound today. Afebrile. Hemodynamically stable White blood cell count 9.49; chemistries are unremarkable, random glucose is 114. The superficial culture taken at the dermatology office on 01/12 shows staph species, sensitivities to follow. Gram stain from the surgical culture is negative; culture pending. Cellulitis, left posterior lower leg Status post I&D, day #1 Continue current antibiotics Await cultures Appreciate orthopedic consultation. Subjective NAEO. Patient reports feeling well in bed this morning. Continues to have some left leg pain after his I&D yesterday, but otherwise no pain or discomfort. Denies chills or night sweats overnight. No chest pain, palpitations, shortness of breath. Physical Exam Physical Exam: General: well-appearing male sitting back in his hospital bed, left LE wrapped, in NAD. Respiratory: normal respiratory effort, lungs clear to auscultation Cardiovascular: RRR, no murmur, no edema Skin: Left lower extremity is wrapped in fresh bandage. No surrounding erythema. Please refer to orthopedics' note for description of the wound and its progression. Results & Data Results & Data ([facility]) Vital Signs (Past 12 Hours) Vital Signs Temp Pulse Resp BP Pulse Ox 01/15/20 07:38 36.5 C 65 16 122/66 100 01/15/20 02:49 36.6 C 74 16 122/73 100 01/14/20 23:03 36.6 C 76 16 150/67 H 97 Resident Activity Tracking Resident Involvement: Resident Care Provided Care Provided: Adult [facility] Medicine (1) Cellulitis Laterality: left Site of cellulitis: extremity Site of cellulitis of extremity: lower extremity Qualified Code(s): L03.116 - Cellulitis of left lower limb (2) Insect bite Encounter type: initial encounter Laterality: left Site of insect bite: lower leg Qualified Code(s): S80.862A - Insect bite (nonvenomous), left lower leg, initial encounter; W57.XXXA - Bitten or stung by nonvenomous insect and other nonvenomous arthropods, initial encounter
[2020-01-15 08:14] LABS: Eosinophils # (auto) 0.01 K/uL (0-0.5); Eosinophils % (auto) 0.1 %; Hematocrit (blood only) 42.2 % (42-52); Hemoglobin 14.9 g/dL (14.0-18.0); Immature Granulocytes # (auto) 0.01 K/uL (0.00-0.02); Immature Granulocytes % (auto) 0.1 %; Lymphocytes % (auto) 9.5 %; Mean Corpuscular Hemoglobin 29.9 pg (25-34); Mean Corpuscular Hgb Conc 35.3 g/dL (32-36); Mean Corpuscular Volume 84.7 fL (80-100); Mean Platelet Volume 10.9 fL (7.4-10.4); Monocytes # (auto) 0.84 K/uL (0.11-0.59); Monocytes % (auto) 8.9 %; Neutrophils # (auto) 7.73 K/uL (1.4-6.5); Neutrophils % (auto) 81.4 %; Platelet Count 163 K/uL (130-400); RDW Coefficient of Variation 12.2 % (11.5-14.5); RDW Standard Deviation 37.3 fL (36.4-46.3); Red Blood Count 4.98 M/uL (4.7-6.1); White Blood Count 9.49 K/uL (4.8-10.8)
[2020-01-15 08:57] LABS: BUN Creatinine Ratio 11.5 (10-20); Calcium 9.6 mg/dl (8.5-10.1); Creatinine Clr Calc Pharmacy 100.5 ml/min; Est GFR (African American) 101.2; Est GFR (Non-African American) 87.3; Potassium 4.2 mmol/L (3.5-5.1)
--- NOTE | 2020-01-15 10:49 | Orthopedic Progress Note ---
Date of Service January 15, 2020 Assessment & Plan (1) Cellulitis: POD #1 s/p 1. Left posterior ankle region incision and drainage of abscess, deep. 2. Irrigation and debridement of skin/fascia, peritenon and Achilles NWB LLE Dressing changed today and the small amount packing removed. Continue IV Daptomycin--preop cultures growing staph. Will await intra-op cultures and sensitivities. Pain control D/C planning--home when cultures are finalized and ABX choices are made. Admission and Anticipated Discharge Date Admission Date: January 13, 2020 Subjective Doing well today. Pain improved later this morning. No new complaints. Physical Exam Constitutional: WD/WN, vitals as above Musculoskeletal: Ankle: + surgical incision (left lateral achilles--packing removed. Well approximated. Mild erythema.) Skin: no rashes, warm and dry Neurologic: normal touch/pain/proprioception Psychiatric: A+Ox3, euthymic affect Speech: normal rate/rhythm/volume of speech Results & Data ([facility]) Vital Signs (Past 12 Hours) Vital Signs Temp Pulse Resp BP Pulse Ox 01/15/20 07:38 36.5 C 65 16 122/66 100 01/15/20 02:49 36.6 C 74 16 122/73 100 01/14/20 23:03 36.6 C 76 16 150/67 H 97 (1) Cellulitis Laterality: left Site of cellulitis: extremity Site of cellulitis of extremity: lower extremity Qualified Code(s): L03.116 - Cellulitis of left lower limb
[2020-01-15] MEDS ORDERED: BuPROPion XL 150 MG TABCR PO SCH (17:30)
[2020-01-16] MEDS: DAPTOmycin 300 MG in SYRINGE 0 ML IV SCH (05:37)
[2020-01-16 07:00] VITALS: BP 110/71; TEMP 97.7; O2SAT 97
[2020-01-16 07:19] LABS: Basophils # (auto) 0.01 K/uL (0-0.2); Basophils % (auto) 0.2 %; Eosinophils # (auto) 0.17 K/uL (0-0.5); Eosinophils % (auto) 3.4 %; Hematocrit (blood only) 41.8 % (42-52); Hemoglobin 14.4 g/dL (14.0-18.0); Immature Granulocytes # (auto) 0.02 K/uL (0.00-0.02); Immature Granulocytes % (auto) 0.4 %; Lymphocytes # (auto) 1.61 K/uL (1.2-3.4); Lymphocytes % (auto) 32.5 %; Mean Corpuscular Hemoglobin 29.3 pg (25-34); Mean Corpuscular Volume 85.1 fL (80-100); Mean Platelet Volume 10.8 fL (7.4-10.4); Monocytes # (auto) 0.46 K/uL (0.11-0.59); Monocytes % (auto) 9.3 %; Neutrophils # (auto) 2.69 K/uL (1.4-6.5); Neutrophils % (auto) 54.2 %; Platelet Count 157 K/uL (130-400); RDW Coefficient of Variation 12.3 % (11.5-14.5); RDW Standard Deviation 38.5 fL (36.4-46.3); Red Blood Count 4.91 M/uL (4.7-6.1); White Blood Count 4.96 K/uL (4.8-10.8)
[2020-01-16 07:39] LABS: BUN Creatinine Ratio 16.1 (10-20); Calcium 8.6 mg/dl (8.5-10.1); Creatinine Clr Calc Pharmacy 101.4 ml/min; Est GFR (African American) 102.3; Est GFR (Non-African American) 88.3; Potassium 4.5 mmol/L (3.5-5.1)
[2020-01-16 07:44] LABS: Mean Corpuscular Hgb Conc 34.4 g/dL (32-36)
[2020-01-16] MEDS ORDERED: DULOXETINE HCL 20 MG CAP PO SCH (09:00)
--- NOTE | 2020-01-16 10:53 | Orthopedic Progress Note ---
Date of Service January 16, 2020 Assessment & Plan (1) Cellulitis: POD #2 s/p 1. Left posterior ankle region incision and drainage of abscess, deep. 2. Irrigation and debridement of skin/fascia, peritenon and Achilles NWB LLE Dressing changed today. Continue IV Daptomycin--preop cultures growing staph. Spoke with Dr. Walker today. We discussed d/c'ing patient today on oral Keflex and Doxycycline. Pain control D/C planning--home today. Will follow up with patient in 4 days for wound check. Admission and Anticipated Discharge Date Admission Date: January 13, 2020 Subjective Doing well today. Minimal pain in the ankle. Swelling improved. No new complaints. Physical Exam Constitutional: WD/WN, vitals as above Musculoskeletal: Ankle: + surgical incision (left lateral achilles--packing removed. Well approximated. Mild erythema.) Skin: no rashes, warm and dry Neurologic: normal touch/pain/proprioception Psychiatric: A+Ox3, euthymic affect Speech: normal rate/rhythm/volume of speech Results & Data ([facility]) Vital Signs (Past 12 Hours) Vital Signs Temp Pulse Resp BP Pulse Ox 01/16/20 06:59 36.5 C 64 16 110/71 97 (1) Cellulitis Laterality: left Site of cellulitis: extremity Site of cellulitis of extremity: lower extremity Qualified Code(s): L03.116 - Cellulitis of left lower limb
[2020-01-16] MEDS ORDERED: DOXYCYCLINE HYCLATE 100 MG CAP PO STA (10:58)
--- NOTE | 2020-01-16 12:02 | Discharge Summary ---
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 Pt reports on Friday, 5 days ago, he was on a trail run and ran through a series of webs in brush. He noticed when he got home that he had a small insect bite on the back of his lower left calf. He feels this was okay on Friday and Friday, but on Friday he had a sudden increase in pain, redness, and swelling. He was seen Friday evening at [facility] who prescribed him Bactrim and noted that he had a 102 fever. [place] like he had minimal improvement and was seen on Friday by his tower helper for a scheduled appointment for dry skin who lanced a blister which reportedly drained clear fluid and instructed him to return to the emergency department if he was not improving within 24 hours. He reports that the redness swelling and pain continued to worsen and spreadWwhich caused him to present to the emergency department last night. Doxycycline was added for double coverage and he had a Lyme screen which was negative. He was discharged home to continue Bactrim/Doxy. His pain, redness, and swelling continued to worsen which caused him to return today for reevaluation. His case was discussed by the emergency provider with you ULIBERTAD who agreed to see him the following morning if he was admitted. Patient reports that he had been taking Motrin and Tylenol for pain with mild/minimal benefit. No other attempted treatment. Worsening factors include bearing weight, after bearing weight for a couple of minutes pain slightly improves. Denies pain with plantar flexion/dorsiflexion/ankle inversion and eversion/lower extremity internal rotation/external rotation. Medical history: History of embryonic myosarcoma cured in 2013 following surgery, chemo, and radiation. Denies other chronic medical history. Surgical history: As above. And left meniscal arthroscopic of the knee. Medications: Denies chronic medications. Family history: Noncontributory Allergies: Denies drug allergies Social: Denies tobacco use, is an avid runner. CODE STATUS: Full code Admission Exam Per Admitting Provider Physical Exam: General: A&Ox3. NAD. Cooperative. HEENT: Atraumatic, normocephalic. Pupils equal and responsive to light and accommodation. Visual acuity grossly intact. Pulm: CTAB A&P. -wheezes, -rales, -rhonchi. Symmetrical chest rise. No increase work of breathing. No respiratory distress. Cardiac: RRR, -mrg. Radial pulses intact and symmetrical. Abdominal: Nontender, nondistended, soft. BS present. Skin: Warm, moist Extremities: Left lower extremity with erythema with sharply demarcated borders and swelling spreading from the posterior distal calf and wrapping around the ankle medially and laterally and sparing the dorsal surface of the left foot. Very warm to the touch. Central area of darkening/slight ulceration. Tender to palpation at ulceration, minimal tenderness at the lateral ankle. Soft tissue swelling is appreciated. PT pulses intact bilaterally and symmetrical. Left ankle dorsiflexion/plantar flexion/inversion/eversion/lower extremity internal rotation/external rotation against resistance does not cause any pain or wors ening of pain. 5/5 strength to all motions and symmetrical with right. Sensation to soft touch intact in all toes bilaterally and symmetrical. Principal Diagnosis Cellulitis, Left Lower Extremity Discharge Exam Constitutional: WD/WN, vitals as above no acute distress Neck: normal visual inspection Respiratory: normal respiratory effort, lungs clear to auscultation Cardiovascular: RRR, no murmur, no edema Gastrointestinal (Abdomen): normal bowel sounds, soft, nontender, no hepatosplenomegaly Musculoskeletal: no cyanosis or clubbing, extremities motor strength 5/5 Skin: dressing covering left LE cellulitis, c/d/i, minimal pain to palpation of anterior leg, no tracking or erythema beyond dressing Neurologic: patellar DTR's 2+ bilat, sensation intact Psychiatric: A+Ox3, euthymic affect Discharge Data Allergies Allergy/AdvReac Type Severity Reaction Status Date / Time No Known Allergies Allergy Verified 01/13/20 21:25 Consultations 01/13/20 20:23 ED Decision to Admit Stat 01/13/20 22:25 Consult Orthopedic Surgery Routine Procedures Performed Operation Date: 01/14/20 14:25 Actual Procedures p Left Lower Extremity Abscess, Incision and Drainage(Left) - Amarjit Bains, Ordered Studies 01/13/20 22:25 extremity non-vascular ltd Urgent Hospital Course (1) Cellulitis: Rudy is a 24-year-old male with a 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 He was initially started on Vancomycin IV that was subsequently transitioned to Daptomycin IV on 01/13 due to concern for OH. His OH subsequently resolved after 1L IVFs and was thought to be secondary to dehydration-induced pre-renal injury. He had a left LE vascular US on 01/12 which was negative for abscess. He was seen by Orthopedic Surgery and was taken to the OR on 01/13 for I&D of the skin, connective tissue/fascia and Achilles tendon of left foot due to proximity of cellulitis to the Achilles tendon. His left LE pain has greatly improved during hospitalization, and his area of erythema has started to fade. He has remained hemodynamically stable/afebrile since admission. He will be discharged on 01/16/2020 in stable, improved condition and will be transitioned to PO antibiotics for 10 more days for outpatient cellulitis therapy - Keflex 500 mg PO TID and Doxycycline Hyclate 100 mg PO BID (to cover for possible Lyme disease due to questionable history of bug bite leading to cellulitis). He will follow up with Ortho on 01/19 for continued management of cellulitis s/p I&D. Total Time Total Time Spent Total Time Spent (In Minutes): 30 minutes Total Time Includes: Examination of the Patient, Discharge Planning and Medication Reconciliation Discharge Plan Discharge Items Patient Disposition: Home - Self-Care Reason For Visit: LLE CELLULITIS Discharge Diagnosis: LLE Cellulitis Condition on Discharge: Fair Activity: As commented below Weightbearing: Left non-weightbearing Non-emergency contact: Surgeon Call non-emergency contact if: your pain is not controlled, your pain is worsening and your temperature is above 101 Follow-up/Referrals: PCP,NO [Primary Care Provider] - Diet: Regular Addtl Attending Provider Instructions: You were admitted to [facility] on 01/13/2020 for fevers of 102F and worsening left leg infection that was not responding to 3 days of Bactrim/Doxycycline outpatient antibiotic therapy. You were initially started on Vancomycin IV that was subsequently transitioned to Daptomycin IV on 01/13 due to concern for kidney injury. Your kidney injury subsequently resolved after IV fluids, and was thought to be due to dehydration, which can happen when someone has fevers. You were seen by Orthopedic Surgery and you were taken to the operating room on 01/13 to clean out the dying and infected tissue on the back of your left leg. This was done due to your persistent symptoms despite antibiotic treatment, as well as because your skin infection was very close to your Achilles tendon. Your leg/foot pain has greatly improved during hospitalization, and your area of redness has started to fade. You have remained stable, without fever, since admission. You will be discharged on 01/16/2020 in stable, improved condition and will be transitioned to oral antibiotics for 10 more days for outpatient cellulitis therapy - Keflex and Doxycycline (to cover for possible Lyme disease due to questionable history of bug bite leading to skin infection). You should take your first dose of Doxycycline tonight, and you will continue to take it two times per day for 10 days. You will take your first dose of Keflex tomorrow morning, and you will continue to take it three times a day for 10 days. You will follow up with Orthopedic Surgery on , 01/19 for continued management of your skin infection. At that time, your Orthopedic Surgeon will determine if you should continue taking your antibiotics. Addtl Clinical Studies Specialist Provider Instructions: ACTIVITY RECOMMENDATIONS: Limitations: No weight bearing to affected limb at all times. SPECIAL CARE INSTRUCTIONS: * Some drainage onto the dressing is normal and is no cause for alarm. * Some swelling is natural especially after walking. * When resting, keep your foot elevated above the level of your heart. * Call [facility] if you notice: -Increased drainage -Fever over 101 degrees F -Severe constant pain BANDAGE: * Leave bandage/cast in place unless otherwise directed. * Keep bandage/cast dry at all times. FOLLOW UP VISIT WITH DR. BAINS If appointment is not already scheduled: Please call [facility] after you get home today to schedule a follow-up appointment for this week with Dr. Bains at . Pending Studies at Discharge: Yes Studies:: Final Intra-operative Wound Culture Stand-Alone Forms: My [facility], Smoking Cessation Medications and DC Order Prescriptions: New cephalexin 500 mg capsule 500 mg PO TID 10 Days Qty: 30 RF: 0 Continued doxycycline hyclate 100 mg tablet 100 mg PO BID 21 Days Qty: 42 RF: 0 Discontinued betamethasone dipropionate 0.05 % ointment 1 applic topical BID Qty: 45 RF: 1 mupirocin 2 % ointment 1 applic topical BID Qty: 22 RF: 0 sulfamethoxazole-trimethoprim 800-160 mg tablet 1 tab PO BID RF: 0 Discharge Orders: Discharge Order (Routine); Ordered 01/16/20 Ordered By: Avi Rodriguez Admission Data Admit Date/Time: 01/13/20 21:23 Attending Provider: Evan Walker Admit Provider: Mario Bragg Primary Care Provider: PCP,JUANY Other Providers: Greg Shrestha ; Amarjit Bains Other Interventions: Discharge Summary Assessment (RN) Last Done: 01/16/20 12:26 Supervising Physician Co-Signing Physician Notes I saw the patient concurrent with the resident physician and confirmed horton portions of the history and physical examination. Also personally discussed the case with the orthopedic physician electrician assistant. Agree with the impression and plan as noted in the resident documentation. Patient feels generally well. He does note marked improvement in the area of the wound in terms of edema and pain. Afebrile. Hemodynamically stable Gram stain from the outpatient dermatology clinic growing a pansensitive staph aureus. Surgical deep wound Gram stain was negative and culture showing no growth Cellulitis, left posterior lower leg Status post I&D, day #2 Keflex 500 mg p.o. three times daily and doxycycline 200 mg p.o. twice daily Follow-up with orthopedics on Signs and symptoms of worsening/progressive infection discussed with patient and emphasized the need for sooner follow-up should these arise. Resident Activity Tracking Resident Involvement: Resident Care Provided Care Provided: Adult [facility] Medicine
[2020-01-16 12:28] VITALS: PULSE 63
[2020-01-18 16:55] LABS: Babesia microti IgG <1:64 titer (<1:64); Ehrlichia chaff IgG Ab <1:64 (<1:64); Ehrlichia chaff IgM Ab <1:20 (<1:20)
== END 2020-01-16 14:06 | disposition home or self-care (01) ==
LOC: ED 18:17 → 3W 18:17 → SUATTDRO 21:23 → 3W 22:01